=== PATIENT | female | born 1965 | race Caucasian/White ===

== ENCOUNTER 2024-11-27 11:58 | Inpatient (IN) | payer MEDICARE, MEDICAID ==
[~2024-11-27] VITALS: Ht 160 cm; Wt 74.0 kg
[2024-11-27 14:00] VITALS: BP 101/72; PULSE 80; RESP 18; TEMP 97.9; O2SAT 98
[2024-11-27 14:31] LABS: GLUCOMETER DEV NAME(LOC) POC.BV; POC SARS-COV2 AG, FIA NEGATIVE (NEGATIVE)
[2024-11-27] MEDS ORDERED: PNEUMOCOCCAL VACCINE POLYVALENT 0.5 ML SYRINGE [PPSV23] IM. ONE (17:15)
[2024-11-27] MEDS ORDERED: ONDANSETRON 4 MG TABLET PO PRN (20:15)
[2024-11-27] MEDS ORDERED: NICOTINE 14 MG/24 HOUR PATCH TD PRN (20:15)
[2024-11-27] MEDS ORDERED: ALBUTEROL SULFATE HFA 90 MCG/PUFF 8 GM INHALER IH PRN (20:15)
[2024-11-27] MEDS ORDERED: MAG HYDROX/ALUMINUM HYD/SIMETH ES 30 ML SUSPENSION UDCUP PO PRN (20:15)
[2024-11-27] MEDS ORDERED: ACETAMINOPHEN 325 MG TABLET PO PRN (20:15)
[2024-11-27] MEDS ORDERED: PETROLATUM,WHITE 28 GM JELLY TP PRN (20:15)
[2024-11-27] MEDS ORDERED: DOCUSATE SODIUM 100 MG CAPSULE PO PRN (20:15)
[2024-11-27] MEDS ORDERED: GuaiFENesin/D-METHORPHAN [SUGAR-FREE] 200-20MG/10 ML SYRUP UDCUP PO PRN (20:15)
[2024-11-27] MEDS ORDERED: IBUPROFEN 400 MG TABLET PO PRN (20:15)
[2024-11-27] MEDS ORDERED: LOPERAMIDE HCL 2 MG CAPSULE PO PRN (20:15)
[2024-11-27] MEDS ORDERED: MAGNESIUM HYDROXIDE SUSPENSION 30 ML UDCUP PO PRN (20:15)
[2024-11-27 20:16] VITALS: BP 94/64; PULSE 93; RESP 18; TEMP 97.7; O2SAT 99
[2024-11-28] MEDS: LEVOTHYROXINE SODIUM 50 MCG TABLET PO SCH (05:44)
[2024-11-28] MEDS: NICOTINE POLACRILEX 2 MG LOZENGE PO PRN (05:46)
[2024-11-28 08:29] VITALS: BP 103/68; PULSE 63; RESP 18; TEMP 98.5; O2SAT 100
[2024-11-28 09:21] LABS: PLATELET COUNT (AUTO) 174 K/uL (150-450); RED BLOOD CELL COUNT(AUTO) 4.49 MIL/uL (4.00-5.20); RED CELL DISTRIBUTION WIDTH 14.1 % (11.5-14.5); WHITE BLOOD COUNT (AUTO) 6.3 K/uL (4.5-11.0)
[2024-11-28 09:51] LABS: ASPARTATE AMINOTRANSFERASE 15 U/L (15-37); CALCIUM, TOTAL 8.9 mg/dL (8.8-10.5); CHOL/HDL RATIO 3.9 (3.9-5.7); CREATININE 0.75 mg/dL (0.60-1.30); GLOMERULAR FILTR. RATE CALC > 60 mL/min (>60); GLUCOSE,RANDOM 91 mg/dL (70-110); LDL CHOL (CALC.) 106 mg/dL (0-130); SODIUM SERUM 141 mmol/L (136-145); TOTAL PROTEIN, SERUM 6.9 g/dL (6.4-8.2); UREA NITROGEN, BLOOD 16 mg/dL (7-18)
[2024-11-28] MEDS: CHOLECALCIFEROL (VIT D3) 2,000 UNITS [50 MCG] TABLET PO SCH (10:01)
[2024-11-28] MEDS: ATORVASTATIN CALCIUM 40 MG TABLET PO SCH (10:01)
[2024-11-28] MEDS ORDERED: TRAZ-257 PO (11:19)
[2024-11-28] MEDS ORDERED: PARO10TA71 PO (11:19)
[2024-11-28 20:13] VITALS: BP 115/82; PULSE 78; RESP 16; TEMP 97.9; O2SAT 97
[2024-11-28] MEDS: ZOLPIDEM TARTRATE 10 MG TABLET PO PRN (22:07)
[2024-11-29 08:17] VITALS: BP 112/98; PULSE 72; RESP 16; TEMP 96.1; O2SAT 99
[2024-11-29 20:25] VITALS: BP 101/78; PULSE 62; RESP 17; TEMP 97.7; O2SAT 99
[2024-11-30 08:38] VITALS: BP 99/69; PULSE 66; RESP 16; TEMP 97.5; O2SAT 98
[2024-11-30 09:26] LABS: APPEARANCE,URINE CLEAR (CLEAR); GLUCOSE, URINE (UA) NEGATIVE (NEGATIVE); LEUKOCYTE ESTERASE ,URINE SMALL (NEGATIVE); NITRATE,URINE NEGATIVE (NEGATIVE); OCCULT BLOOD,URINE NEGATIVE (NEGATIVE); PH,URINE DRUG SCREEN 6.5 (5.0-8.0); SPECIFIC GRAVITIY, URINE 1.014 (1.003-1.030)
[2024-11-30 09:31] LABS: ALCOHOL, URINE DRUG SCREEN NEGATIVE (NEGATIVE); AMPHET/METH SCREEN,URINE NEGATIVE (NEGATIVE); BARBITURATE SCREEN, URINE NEGATIVE (NEGATIVE); CANNABINOID SCREEN,URINE NEGATIVE (NEGATIVE); COCAINE SCREEN,URINE NEGATIVE (NEGATIVE); METHADONE SCREEN, URINE NEGATIVE (NEGATIVE)
[2024-11-30 09:35] LABS: SQUAMOUS EPITHELIAL CELL,UR Rare /LPF (None Seen)
[2024-11-30 20:38] VITALS: BP 99/77; PULSE 69; RESP 20; TEMP 97.7; O2SAT 100
[2024-12-01 08:14] VITALS: BP 101/62; PULSE 65; RESP 18; TEMP 98.4; O2SAT 99
[2024-12-01 20:20] VITALS: BP 112/69; PULSE 61; RESP 18; TEMP 98.2; O2SAT 99
[2024-12-02 08:56] VITALS: BP 101/64; PULSE 67; RESP 16; TEMP 98.3; O2SAT 100
[2024-12-02 20:44] VITALS: BP 101/67; PULSE 63; RESP 18; TEMP 97.6; O2SAT 96
[2024-12-03 08:48] VITALS: BP 104/73; PULSE 77; RESP 16; TEMP 97.9; O2SAT 97
[2024-12-03 20:13] VITALS: BP 103/70; PULSE 62; RESP 17; TEMP 97.7; O2SAT 100
[2024-12-04 08:32] VITALS: BP 92/62; PULSE 73; RESP 17; O2SAT 96
[2024-12-04 20:09] VITALS: BP 113/71; PULSE 67; RESP 17; TEMP 98.1; O2SAT 98
[2024-12-05 08:38] VITALS: BP 103/64; PULSE 62; RESP 16; TEMP 96.4; O2SAT 97
[2024-12-05] MEDS ORDERED: PARO-38 PO (17:13)
[2024-12-05] MEDS ORDERED: CHOL200059 PO (17:13)
[2024-12-05] MEDS ORDERED: TRAZ-257 PO (17:13)
[2024-12-05] MEDS ORDERED: LEVO50 PO (17:13)
[2024-12-05] MEDS ORDERED: ATOR40TA71 PO (17:13)
[2024-12-05 22:03] VITALS: RESP 18
[2024-12-06 08:11] VITALS: BP 93/63; PULSE 62; RESP 17; TEMP 97.9; O2SAT 96
== END 2024-12-06 13:08 | disposition home or self-care (01) | DRG 885 ==
LOC: B2S 12:53
PROVIDERS: ADMIT Psychiatry & Neurology Psychiatry; ATTEND Psychiatry & Neurology Psychiatry
PROC: GZHZZZZ Group Psychotherapy (ICD-10-PCS; principal; 2024-11-28)
PROC: GZ52ZZZ Individual Psychotherapy, Cognitive (ICD-10-PCS; 2024-12-02)
DX: F33.2 Major depressive disorder, recurrent severe without psychotic features (principal); R45.851 Suicidal ideations; E03.9 Hypothyroidism, unspecified; Z20.822 Contact with and (suspected) exposure to COVID-19; E78.5 Hyperlipidemia, unspecified; E55.9 Vitamin D deficiency, unspecified; E66.9 Obesity, unspecified; G47.00 Insomnia, unspecified; Z79.899 Other long term (current) drug therapy; Z68.28 Body mass index [BMI] 28.0-28.9, adult
CPT/HCPCS: 80053; 80061; 80307; 81001; 83036; 84436; 84443; 85025; 86592